=== PATIENT | male | born 1985 | race Hispanic/Latino ===

== ENCOUNTER 2020-03-24 16:41 | Emergency (ER) | payer SELFPAY ==
[2020-03-24 17:13] LABS: #Basophils 0.1 thou/uL (0.0-0.2); #Eosinphils 0.1 thou/uL (0.0-0.7); #Lymphocytes 2.6 thou/uL (1.20-3.40); #Monocytes 0.5 thou/uL (0.11-0.59); #Neutrophils 3.1 thou/uL (1.40-6.50); %Basophils 1.3 % (0.0-1.0); %Eosinophils 1.1 % (0.0-10.0); %Monocytes 7.7 % (0.0-10.0); %Neutrophils 48.9 % (42.0-75.0); Hemoglobin 15.3 g/dL (14.0-18.0); Mean Corpuscular HGB CONC 32.6 g/dL (32.0-36.0); Mean Corpuscular Hemoglobin 29.7 pg (27.0-31.0); Mean Corpuscular Volume 91.2 fL (78.0-98.0); Mean Platelet Volume 10.1 fL (7.4-10.4); Platelet Count 156 thou/uL (130-400); RBC Distribution Width 11.5 % (11.5-14.5); Red Blood Cell (RBC) Count 5.15 mill/uL (4.70-6.10); White Blood Cell (WBC) Count 6.3 thou/uL (4.8-10.8)
[2020-03-24 17:34] LABS: Lipase 15 U/L (8-78)
[2020-03-24 18:27] LABS: ALT (SGPT) 57 U/L (8-55); AST (SGOT) 34 U/L (5-34); Albumin 4.7 g/dL (3.5-5.0); Alkaline Phosphatase 82 U/L (40-110); Anion Gap 15 mmol/L (10-20); BUN (Urea Nitrogen) 10 mg/dL (8.9-20.6); Bilirubin, Total 0.6 mg/dL (0.2-1.2); Calc. Creatinine Clearance 0 mL/min (70-130); Calcium 9.6 mg/dL (7.8-10.44); Carbon Dioxide 23 mmol/L (22-29); Chloride 108 mmol/L (98-107); Estimated GFR-MDRD Greater than 90; Globulin 2.8 g/dL (2.4-3.5); Glucose 92 mg/dL (70-105); Potassium 4.6 mmol/L (3.5-5.1); Protein, Total 7.5 g/dL (6.0-8.3); Sodium 141 mmol/L (136-145)
[2020-03-24] MEDS ORDERED: Dicyclomine 20 MG TAB ONE (19:00)
[2020-03-24] MEDS ORDERED: Lidocaine Viscous Sol 2% 15 ml UD Cup ONE (19:00)
[2020-03-24] MEDS ORDERED: Mag-Al 1200 mg/1200 mg/30 ML UDCUP ONE (19:00)
--- NOTE | 2020-03-24 20:51 | ULT ---
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 COMPARISON: None. FINDINGS: Real time arias scale and color evaluation right upper quadrant of the abdomen was performed. The visualized portions of the aorta, IVC, and pancreas unremarkable. Diffuse increased hepatic echot exture, relatively high grade. No hepatic mass. Gallbladder is normal appearing. No pericholecystic f luid. No cholelithiasis. Common bile duct is normal measuring 3 mm. The liver measures 16.5 cm in length. The right kidney measures 11.6 x 4.9 x 7.4 cm without mass, hy dronephrosis or abnormal calcifications. Sonographic Saha's sign is negative. IMPRESSION: 1. No cholelithiasis or acute gallbladder pathology. 2. Diffuse relatively high grade increased hepatic echotexture suggesting steatosis. POS: HOME
== END 2020-03-24 20:58 | disposition home or self-care (01) ==
LOC: ERS 16:41
DX: R10.11 Right upper quadrant pain (principal)
CPT/HCPCS: 36415; 76705; 80053; 83690; 85025